=== PATIENT | male | born 1960 | race Two or more races ===

== ENCOUNTER 2019-01-30 01:26 | Emergency (ER) | payer OTHER ==
[~2019-01-30] VITALS: Ht 180.3 cm; Wt 91.6 kg
[~2019-01-30 01:26] MED LIST: CELEBREX100 MG PO; SKELAXIN800 MG PO
[2019-01-30] MEDS ORDERED: NEURONTIN300 MG (01:49)
[2019-01-30] MEDS ORDERED: JANUMET XR 50-1 EACH (01:49)
[2019-01-30] MEDS ORDERED: ENALAPRIL MALE2.5 MG (01:50)
[2019-01-30] MEDS ORDERED: ORASEP SPRAY30 ML MM ×2 (02:31→02:32)
[2019-01-30] MEDS ORDERED: ALLERGY EYE DRO15 ML OP ×2 (02:31→02:32)
[2019-01-30] MEDS ORDERED: DUI500 PO (02:32)
== END 2019-01-30 02:37 | disposition home or self-care (01) ==
LOC: ER 01:26
DX: J06.9 Acute upper respiratory infection, unspecified (principal); J31.2 Chronic pharyngitis

== ENCOUNTER → 2022-02-03 | Emergency (ER) | payer OTHER ==
[~2022-02-03] VITALS: Ht 180.3 cm; Wt 93.4 kg
[~2022-02-03] MED LIST changes: +ALLERGY EYE DRO15 ML OP; +ATORVASTATIN CA40 MG PO; +DUI500 PO; +ENALAPRIL MALE2.5 MG; +JANUMET XR 50-1 EACH; +NEURONTIN300 MG; +ORASEP SPRAY30 ML MM
== END | disposition home or self-care (01) ==
LOC: ER 12:18
DX: U07.1 COVID-19 (principal)